=== PATIENT | female | born 1955 | race Caucasian/White ===

== ENCOUNTER 2021-09-12 12:16 | Outpatient (CLI) | payer MEDICARE, OTHER | END 2021-09-12 12:17 | disposition home or self-care (01) | LOC: BICRAD 12:16 | PROVIDERS: ATTEND Internal Medicine Rheumatology | DX: M54.2 Cervicalgia (principal); M47.812 Spondylosis without myelopathy or radiculopathy, cervical region | CPT/HCPCS: 72052 ==